=== PATIENT | male | born 1990 ===

== ENCOUNTER 2021-07-12 20:04 | Inpatient (IN) | payer SELFPAY ==
--- NOTE | 2021-07-12 21:12 | Emergency Department Report ---
ED General Adult HPI - General Chief complaint: Urogenital-Male Stated complaint: CYST/GROIN PAIN Time Seen by Provider: 07/12/21 20:54 Source: EMS Mode of arrival: Stretcher Limitations: Language Barrier - History of Present Illness Initial comments: Patient is 31 years old male with no significant past medical history. Patient presented to the ER complaining of left groin swelling. Patient stated that he was walking today and then all of a sudden he felt for swelling and he feels like he is getting bigger. 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 Patient is very anxious. Patient denied any fever, chills, nausea or vomiting. Patient rated his pain as 10 out of 10. - Related Data Allergies Allergy/AdvReac Type Severity Reaction Status Date / Time No Known Allergies Allergy Verified 07/12/21 21:00 ED Review of Systems ROS: Stated complaint: CYST/GROIN PAIN Other details as noted in HPI Comment: All other systems reviewed and negative Constitutional: denies: chills, fever Respiratory: denies: cough, shortness of breath, SOB with exertion, SOB at rest Cardiovascular: denies: chest pain, palpitations Gastrointestinal: denies: abdominal pain, nausea, vomiting, diarrhea, constipation, hematemesis, melena, hematochezia Genitourinary: other (Left inguinal hernia.). denies: testicular mass Neurological: denies: headache, weakness, numbness, paresthesias, confusion, abnormal gait ED Past Medical Hx - Past Medical History Previous Medical History?: No ED Physical Exam - General Limitations: Language Barrier General appearance: alert, in distress - Head Head exam: Present: atraumatic, normocephalic, normal inspection - Eye Eye exam: Present: normal appearance, PERRL - ENT ENT exam: Present: normal exam, normal orophraynx, mucous membranes moist - Neck Neck exam: Present: normal inspection, full ROM. Absent: tenderness, meningismus - Respiratory Respiratory exam: Present: normal lung sounds bilaterally - Cardiovascular Cardiovascular Exam: Present: regular rate, normal rhythm, normal heart sounds - GI/Abdominal GI/Abdominal exam: Present: soft, normal bowel sounds, hernia (Left inguinal hernia). Absent: distended, tenderness, guarding, rebound, rigid, organomegaly, mass, bruit, pulsatile mass (.) - Extremities Exam Extremities exam: Present: normal inspection, full ROM, normal capillary refill. Absent: tenderness, pedal edema, joint swelling, calf tenderness - Back Exam Back exam: Present: normal inspection, full ROM. Absent: CVA tenderness (R), CVA tenderness (L) - Neurological Exam Neurological exam: Present: alert, oriented X3, CN II-XII intact, normal gait, reflexes normal - Psychiatric Psychiatric exam: Present: normal mood - Skin Skin exam: Present: warm, intact, normal color ED Course Vital Signs 07/12/21 20:07 Temperature 97.8 F Pulse Rate 96 H Respiratory 19 Rate Blood Pressure 131/93 [Right] O2 Sat by Pulse 100 Oximetry - Reevaluation(s) Reevaluation #1: 07/12/21 21:15 Tried to reduce the left inguinal hernia however unsuccessful. Reevaluation #2: 07/12/21 22:10 Patient given morphine for pain. Attempted again to reduce the hernia with no success. CT abdomen pelvis ordered. 07/12/21 23:51 ED Medical Decision Making - Lab Data Result diagrams: 07/12/21 21:16 07/12/21 21:16 - Radiology Data Radiology results: report reviewed - Medical Decision Making Patient is 31 years old male with no significant past medical history. Patient presented to the ER complaining of left groin swelling. Patient stated that he was walking today and then all of a sudden he felt for swelling and he feels like he is getting bigger. 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 Patient is very anxious. Patient denied any fever, chills, nausea or vomiting. Patient rated his pain as 10 out of 10. Labs showed leukocytosis of 13 with left shift. Patient received Zosyn. CT abdomen and pelvis with IV contrast showed incarcerated left inguinal hernia. I discussed the patient with Dr. Mejia, surgeon on-call, she stated that she is calling the OR for emergency surgery. I discussed the patient with Dr. Diaz, he agreed to admit the patient to medical service for further management. Critical Care Time: Yes Critical care time in (mins) excluding proc time.: 30 Critical care attestation.: If time is entered above; I have spent that time in minutes in the direct care of this critically ill patient, excluding procedure time. ED Disposition Clinical Impression: Incarcerated left inguinal hernia, Acute abdominal pain Disposition: ADMITTED INPATIENT Is pt being admited?: Yes Condition: Stable
[2021-07-12 21:49] LABS: Basophils % (Auto) 0.3 % (0.0-1.8); Lymphocytes % (Auto) 7.3 % (13.4-35.0); Mean Corpuscular HGB Conc 33 % (32-34); Mean Corpuscular Volume 91 fl (84-94); Monocytes # (Auto) 0.6 K/mm3 (0.0-0.8); Monocytes % (Auto) 4.3 % (0.0-7.3); Platelet Count 281 K/mm3 (140-440); Red Blood Count 4.62 M/mm3 (3.65-5.03); Red Cell Distribution Width 14.1 % (13.2-15.2)
[2021-07-12] MEDS ORDERED: SODIUM CHLORIDE 0.9% 1000 ML 1,000 ML IV ONE (21:58)
[2021-07-12] MEDS ORDERED: MORPHINE 4 MG/1 ML INJ IV ONE (21:58)
[2021-07-12] MEDS ORDERED: ONDANSETRON 4 MG/2 ML INJ IV ONE (21:58)
[2021-07-12 21:59] LABS: Blood Urea Nitrogen 12 mg/dL (9-20); Calcium 9.6 mg/dL (8.4-10.2); Hemolysis Index 12
[2021-07-12 22:02] LABS: BUN/Creatinine Ratio 20
[2021-07-12] MEDS ORDERED: LORazepam 2 MG/ML VIAL IV ONE (22:17)
[2021-07-12] MEDS ORDERED: PIPERACILLIN/TAZOBACTAM 3.375 3.375 GM/50 ML BAG IV ONE (23:06)
--- NOTE | 2021-07-12 23:22 | Cat Scan Report ---
CT ABDOMEN AND PELVIS WITH IV CONTRAST INDICATION: abdominal pain/LEFT GROIN HERNIA. COMPARISON: None available. TECHNIQUE: Axial CT images were obtained through the abdomen and pelvis after 100 mL Omnipaque [address] scans at this location are performed using CT dose reduction for ALARA by means of automated e xposure control. FINDINGS -- ABDOMEN: Lung Bases: No acute abnormality. Liver: Normal. Gallbladder: Normal. Bile Ducts: Normal. Pancreas: Normal. Spleen: Normal. Adrenals: Normal. Right Kidney and Proximal Ureter: Normal. Left Kidney and Proximal Ureter: Normal. Stomach and Bowel: Normal. Lymph Nodes: No significant adenopathy. Aorta: No significant abnormality. IVC: Normal. Additional Findings: None. FINDINGS -- PELVIS: Urinary Bladder and Distal Ureters: Normal. Reproductive Organs: No acute abnormality. Appendix: Normal. Bowel: No acute abnormality. Free Fluid: None. Lymph Nodes: No significant adenopathy. Additional Findings: There is a large incarcerated left inguinal hernia that contains several loops o f incarcerated small bowel with prominent surrounding edema. The mouth of the hernia measures approxi mately 3 cm in diameter.. Skeletal System: No acute abnormality. IMPRESSION: 1. Severe incarcerated left inguinal hernia containing a incarcerated loop of distal small bowel, as above. Underlying ischemia of the incarcerated portion of small bowel within the left inguinal hernia is not excluded. This appears to be causing low-grade mechanical obstruction of the upstream small b owel. Signer Name: Ap Hancock MD Signed: 07/12/2021 11:17 PM Workstation Name: [id number]
--- NOTE | 2021-07-13 00:37 | History and Physical Report ---
History of Present Illness Date of examination: 07/13/21 Date of admission: 07/13/21 Chief complaint: Abdominal pain History of present illness: This is a 31 years old male with no significant past medical history. Patient presented to the ER complaining of left groin swelling. Patient stated that he was walking today and then all of a sudden he felt for swelling and he feels like he is getting bigger. 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 left inquinal hernia containing incarcerated loop. S/P Open repair of incarcerated left inguinal hernia with mesh. Past History Past Medical History: other (Inguinal hernia) Past Surgical History: No surgical history Social history: lives with family, smoking, full code. denies: alcohol abuse, prescription drug abuse, IV drug use Family history: no significant family history Medications and Allergies Allergies Allergy/AdvReac Type Severity Reaction Status Date / Time No Known Allergies Allergy Verified 07/12/21 21:00 Review of Systems Constitutional: weakness Ears, nose, mouth and throat: no epistaxis, no bleeding gums Cardiovascular: no chest pain, no dyspnea on exertion Respiratory: no wheezing, no pleurisy Gastrointestinal: no melena Rectal: no itching, no hemorrhoids Musculoskeletal: no morning stiffness Integumentary: no rash, no pruritis, no redness Neurological: no paralysis Psychiatric: anxiety Hematologic/Lymphatic: no easy bruising, no easy bleeding, no lymphadenopathy, no lymphedema Allergic/Immunologic: no urticaria Exam - Constitutional Vitals: Temp Pulse Resp BP Pulse Ox 97.8 F 96 H 19 131/93 100 07/12/21 20:07 07/12/21 20:07 07/12/21 20:07 07/12/21 20:07 07/12/21 20:07 General appearance: Present: mild distress, well-nourished - EENT Eyes: Present: PERRL ENT: hearing intact, clear oral mucosa - Neck Neck: Present: supple, normal ROM - Respiratory Respiratory effort: normal Respiratory: bilateral: CTA - Cardiovascular Heart Sounds: Present: S1 & S2. Absent: rub, click - Extremities Extremities: pulses symmetrical, No edema Peripheral Pulses: within normal limits - Abdominal General gastrointestinal: Present: soft, tender, normal bowel sounds Localized gastrointestinal: tender: LLQ, guarding: LLQ, rebound: LLQ Male genitourinary: Present: normal - Integumentary Integumentary: Present: clear, warm, dry - Musculoskeletal Musculoskeletal: gait normal, strength equal bilaterally - Psychiatric Psychiatric: appropriate mood/affect, intact judgment & insight, cooperative - Neurologic Neurologic: CNII-XII intact, moves all extremities - Allied Health Allied health notes reviewed: nursing Results - Labs CBC & Chem 7: 07/12/21 21:16 07/12/21 21:16 Labs: Abnormal lab results 07/12/21 07/12/21 Range/Units 21:16 21:16 WBC 13.4 H (4.5-11.0) K/mm3 Lymph % (Auto) 7.3 L (13.4-35.0) % Lymph # (Auto) 1.0 L (1.2-5.4) K/mm3 Seg Neutrophils % 88.1 H (40.0-70.0) % Seg Neutrophils # 11.8 H (1.8-7.7) K/mm3 Carbon Dioxide 20 L (22-30) mmol/L Creatinine 0.6 L (0.8-1.3) mg/dL Glucose 120 H (75-100) mg/dL Assessment and Plan - Patient Problems (1) Acute abdominal pain Current Visit: No Status: Acute Plan to address problem: Pain level is 10/10 on assessment General consulted pain management (2) Incarcerated left inguinal hernia Current Visit: No Status: Acute Plan to address problem: CT of the abdomen showed incarcerated hernia with small bowel Start empiric antibiotic with Zosyn s/p Open repair of incarcerated left inguinal hernia with mesh patient has congenital absence of left testicle (3) Leukocytosis (leucocytosis) Current Visit: No Status: Acute Plan to address problem: Monitor white blood cells continue IV hydration and IV antibiotic (4) DVT prophylaxis Current Visit: No Status: Acute Plan to address problem: SCD
--- NOTE | 2021-07-13 01:16 | Consultation ---
History of Present Illness Consult date: 07/13/21 Reason for consult: other (left groin pain) Chief complaint: left groin pain - History of present illness History of present illness: 31 yo M with hx of left inguinal hernia who presents to ER with c/o pain and swelling in left groin for the past day. Patient states pain is sharp, severe, and does not radiate. The pain and swelling has progressively gotten worse leading to ER visit. 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 +vomiting in ER. No f/c. No cp, sob. No bulge or pain in right groin. Despite premedication with pain medication, hernia was unable to be reduced. Past History Past Medical History: other (Inguinal hernia) Past Surgical History: No surgical history Social history: lives with family, smoking (1 Pack every 3 days, marijuana), full code. denies: alcohol abuse, prescription drug abuse, IV drug use Family history: no significant family history Medications and Allergies Allergies Allergy/AdvReac Type Severity Reaction Status Date / Time No Known Allergies Allergy Verified 07/12/21 21:00 Review of Systems All systems: negative (10 pt ROS performed and negative except for that listed in HPI) Exam Vital Signs Temp Pulse Resp BP Pulse Ox 97.8 F 96 H 19 131/93 100 07/12/21 20:07 07/12/21 20:07 07/12/21 20:07 07/12/21 20:07 07/12/21 20:07 Narrative exam: Gen; AAOx3. Mod distress due to pain ENT: no icterus or conjunctival pallor CV: S1, S2+ resp; even and unlabored Abd: soft, NT, ND. L inguinal hernia is soft but not reducible, +TTP, -skin changes. Ext; no c/c/e Results - Labs 07/12/21 21:16 07/12/21 21:16 Abnormal lab results 07/12/21 07/12/21 Range/Units 21:16 21:16 WBC 13.4 H (4.5-11.0) K/mm3 Lymph % (Auto) 7.3 L (13.4-35.0) % Lymph # (Auto) 1.0 L (1.2-5.4) K/mm3 Seg Neutrophils % 88.1 H (40.0-70.0) % Seg Neutrophils # 11.8 H (1.8-7.7) K/mm3 Carbon Dioxide 20 L (22-30) mmol/L Creatinine 0.6 L (0.8-1.3) mg/dL Glucose 120 H (75-100) mg/dL Diabetes panel 07/12/21 Range/Units 21:16 Sodium 138 (137-145) mmol/L Potassium 3.8 (3.6-5.0) mmol/L Chloride 103.0 (98-107) mmol/L Carbon Dioxide 20 L (22-30) mmol/L BUN 12 (9-20) mg/dL Creatinine 0.6 L (0.8-1.3) mg/dL Glucose 120 H (75-100) mg/dL Calcium 9.6 (8.4-10.2) mg/dL Calcium panel 07/12/21 Range/Units 21:16 Calcium 9.6 (8.4-10.2) mg/dL Pituitary panel 07/12/21 Range/Units 21:16 Sodium 138 (137-145) mmol/L Potassium 3.8 (3.6-5.0) mmol/L Chloride 103.0 (98-107) mmol/L Carbon Dioxide 20 L (22-30) mmol/L BUN 12 (9-20) mg/dL Creatinine 0.6 L (0.8-1.3) mg/dL Glucose 120 H (75-100) mg/dL Calcium 9.6 (8.4-10.2) mg/dL Adrenal panel 07/12/21 Range/Units 21:16 Sodium 138 (137-145) mmol/L Potassium 3.8 (3.6-5.0) mmol/L Chloride 103.0 (98-107) mmol/L Carbon Dioxide 20 L (22-30) mmol/L BUN 12 (9-20) mg/dL Creatinine 0.6 L (0.8-1.3) mg/dL Glucose 120 H (75-100) mg/dL Calcium 9.6 (8.4-10.2) mg/dL - Imaging CT scan - abdomen: report reviewed, image reviewed CT scan - pelvis: report reviewed, image reviewed Assessment and Plan 31 yo M with incarcerated left inguinal hernia containing obstructed small bowel Pt stable but hernia not reducible. Ct scan A/P demonstrates left inguinal hernia containing obstructed, incarcerated small bowel with possibility of underlying ischemia cannot be r/o. Plan: 1. Admit to hospitalist service 2. NPO 3. IVF 4. IV abx 5. prn pain control 6. recommend OR for reduction of small bowel and open repair of left inguinal hernia, possible mesh. Discussed with patient and the possibility of small bowel resection, exploratory laparotomy discussed. Consent obtained. Will proceed to OR emergently. Thank you. Please call with questions.
[2021-07-13] MEDS ORDERED: METOCLOPRAMIDE 10 MG/2 ML INJ IV PRN (01:19)
[2021-07-13] MEDS ORDERED: MAGNESIUM HYDROXIDE (MOM) ORAL LIQD UDC PO PRN (01:19)
[2021-07-13] MEDS ORDERED: ONDANSETRON 4 MG/2 ML INJ IV PRN (01:19)
[2021-07-13] MEDS ORDERED: ACETAMINOPHEN 325 MG TAB PO PRN (01:19)
[2021-07-13] MEDS ORDERED: NALOXONE 0.4 MG/1 ML INJ IV PRN (01:19)
[2021-07-13] MEDS ORDERED: MORPHINE 2 MG/1 ML INJ IV PRN (01:19)
[2021-07-13] MEDS ORDERED: oxyCODONE /ACETAMINOPHEN 5-325MG TAB PO PRN (01:19)
[2021-07-13] MEDS ORDERED: MORPHINE 4 MG/1 ML INJ IV PRN (01:19)
[2021-07-13] MEDS ORDERED: SODIUM CHLORIDE 0.9% 1000 ML 1,000 ML IV SCH (01:30)
[2021-07-13] MEDS ORDERED: BUPIVACAINE/PF (0.5%) 5 MG/1 ML 30 ML VIAL INFILTRATI ONE ×2 (01:45→03:00)
[2021-07-13] MEDS ORDERED: LIDOCAINE (1%) 10 MG/1 ML VIAL 20 ML MDV ONE (01:45)
--- NOTE | 2021-07-13 01:50 | Anesthesia Consultation ---
Anesthesia Consult and Med Hx Date of service: 07/13/21 - Airway Anesthetic Teeth Evaluation: Good ROM Head & Neck: Adequate Mental/Hyoid Distance: Adequate Mallampati Class: Class I Intubation Access Assessment: Good - Pulmonary Exam CTA: Yes - Pre-Operative Health Status ASA Pre-Surgery Classification: ASA2, Emergency Proposed Anesthetic Plan: General - Pulmonary Hx Smoking: Yes - Cardiovascular System Hx Hypertension: No Hx Coronary Artery Disease: No - Central Nervous System Hx Neuromuscular Disorder: No Hx Seizures: No - Endocrine Hx Renal Disease: No Hx Liver Disease: No Hx Insulin Dependent Diabetes: No Hx Non-Insulin Dependent Diabetes: No Hx Thyroid Disease: No - Hematic Hx Anemia: No - Other Systems Hx Alcohol Use: No Hx Substance Use: No Hx Obesity: No - Additional Comments Anesthesia Medical History Comments: Patient denied previous anesthesia complications.
--- NOTE | 2021-07-13 01:51 | Anesthesia Day of Surgery ---
Anesthesia Day of Surgery - Day of Surgery Patient Examined: Yes Patient H&P Reviewed: Yes Patient is NPO: Yes Beta Blockers: No Cardiac Clearance: No Pulmonary Clearance: No Irvin's Test: N/A
[2021-07-13] MEDS ORDERED: LIDOCAINE MPF (2%) 20 MG/1 ML VIAL 5 ML ONE (01:56)
[2021-07-13] MEDS ORDERED: ONDANSETRON 4 MG/2 ML INJ ONE (01:56)
[2021-07-13] MEDS ORDERED: HYDROmorphone 1 MG/1 ML INJ ONE (01:56)
[2021-07-13] MEDS ORDERED: ROCURONIUM 50 MG/5 ML INJ IV ONE (01:56)
[2021-07-13] MEDS ORDERED: propofoL 200 MG/20 ML VIAL IV ONE (01:57)
[2021-07-13] MEDS ORDERED: dexAMETHasone 20 MG/5 ML VIAL ONE (01:58)
[2021-07-13] MEDS ORDERED: PIPERACIL/TAZOBACTA 4.5/NS 100 4.5 GM/100 ML VIAL IV SCH (02:00)
[2021-07-13] MEDS ORDERED: SODIUM CHLORIDE 0.9% IRR 1,500 ML BOTTLE IR ONE (03:00)
[2021-07-13] MEDS ORDERED: LIDOCAINE (1%) 10 MG/1 ML VIAL 20 ML MDV INFILTRATI ONE (03:00)
[2021-07-13] MEDS ORDERED: KETOROLAC 30 MG/1 ML INJ ONE (03:58)
[2021-07-13] MEDS ORDERED: LACTATED RINGERS 2,000 ML ONE (03:59)
[2021-07-13] MEDS ORDERED: NEOSTIGMINE 10MG/10 ML INJ MDV ONE (03:59)
[2021-07-13] MEDS ORDERED: GLYCOPYRROLATE 0.4 MG/2 ML INJ ONE (03:59)
--- NOTE | 2021-07-13 04:19 | Operative Report ---
Operative Report Operative Report: Operative Report: Date of operation: 07/13/2021 Preoperative diagnosis: Incarcerated left inguinal hernia, small bowel obstruction Postoperative diagnosis: Incarcerated left inguinal hernia Procedure: Open repair of incarcerated left inguinal hernia with mesh Surgeon: Jonn huston DO Accounting Director: MD Abi Anesthesia: Geta, local, left ilioinguinal nerve block Findings: Moderate sized incarcerated left inguinal hernia. No cord structures on left - congenital absence of left testicle EBL: 5 cc Specimen: None Complications: None Disposition: Stable to PACU HPI an indication: Patient is a 31-year-old male with a history of left inguinal hernia, congenital absence of left testicle who presented to the emergency room with complaints of severe sudden onset left-sided groin pain with a bulge. He was found to have a incarcerated left inguinal hernia which could not be reduced. CT scan of the abdomen and pelvis revealed a left inguinal hernia containing a loop of obstructed small bowel. It was recommended that the patient undergo emergent repair of the left inguinal hernia. All risk, benefits, alternatives to surgery were discussed and questions answered. Consent obtained. Procedure in detail: The patient was identified in the preoperative area, taken back to the operating room and placed on the operating table in supine position. After anesthesia was induced, the abdomen was then prepped and draped in usual sterile fashion and a timeout was performed. Local anesthetic was infiltrated into the skin at the intended incision site. A curved incision was made from the pubic tubercle towards the ASIS using a 10 blade. Dissection was carried down through skin subcutaneous tissue using electrocautery. The hernia sac was identified and from the surrounding subcutaneous tissue. During manipulation of the hernia sac, contents were easily reduced. The external oblique fascia was cleared of overlying tissue and then opened in the direction of its fibers using Metzenbaum scissors. The nerve was identified and protected. The hernia sac was then dissected from the surrounding tissue using combination of blunt dissection and electrocautery. Cremasteric muscles were divided using electrocautery. The hernia sac was encircled with a Lars drain in order to facilitate retraction. There are no cord structures identified on this side as the patient does have a congenital absence of the left testicle. During the dissection, a branch of the nerve traced to the hernia sac and splayed out onto the hernia sac. This needed to be transected in order to facilitate dissection. Once the hernia sac was completely dissected it was reduced into the deep ring. The mouth of the hernia measured approximately 3 cm. The wound bed was checked for hemostasis was carefully ensured. The hernia was repaired with a medium size plug and patch. The plug was placed into the deep ring and sutured to the transversalis fascia medially and the shelving edge of the inguinal ligament laterally using 2-0 Prolene suture. The apex of the patch was sutured to the pubic tubercle using a 2-0 Prolene suture. The medial aspect was sutured to the transversalis fascia at every 1 cm interval using 2-0 Prolene interrupted sutures. The lateral aspect was sutured to the shelving edge of the inguinal ligament at every 1 cm interval using 2-0 Prolene interrupted sutures. There was a precut keyhole which was sutured together using 2-0 Prolene and tucked underneath the external oblique fascia. The mesh was seen to lay flat and had excellent coverage. At this point the external oblique fascia was reapproximated using a 3-0 Vicryl running stitch. Local anesthetic was once again infiltrated into the skin and subcutaneous tissue. A left ilioinguinal nerve block was performed using 5 cc of local anesthetic. The subcutaneous tissue was irrigated and hemostasis ensured. The deep dermal layer was then closed using interrupted 3-0 Vicryl sutures. The skin was approximated using 4-0 Monocryl subcuticular running stitch and skin glue. At the end of the case, all sponge, instrument, sharp counts were correct x2. The right testicle was palpated in the scrotum in anatomic position. The patient was awoken from anesthesia, extubated, taken to PACU in stable condition.
[2021-07-13] MEDS ORDERED: HYDROcodone/ACETAMINOPHEN 5-325 MG TAB PO PRN (04:20)
--- NOTE | 2021-07-13 04:42 | Post Anesthesia Evaluation ---
- Post Anesthesia Evaluation Patient Participated: Yes Airway Patent: Yes Stable Respiratory Function: Yes Nausea/Vomiting: No Temp > 96.8F: Yes Pain Manageable: Yes Adequeate Hydration: Yes Anesthesia Complications: No Block Receding Appropriately: Not Applicable Patient on Ventilator: No
[2021-07-13 08:47] VITALS: BP 108/64
[2021-07-13] MEDS ORDERED: FAMOTIDINE 20 MG/2 ML INJ IV SCH (10:00)
[2021-07-13] MEDS ORDERED: ENOXAPARIN 40 MG/0.4 ML INJ SUB-Q SCH (10:00)
--- NOTE | 2021-07-13 10:05 | Discharge Summary ---
Providers - Providers Date of Admission: 07/13/21 03:00 Date of discharge: 07/13/21 Attending physician: SAVITA YIN Primary care physician: JUNIOR MECH[employer]ICAL ENGINEER Hospitalization Reason for admission: Abdominal pain Condition: Stable Hospital course: 31 year old male with no significant past medical history who presented to the ER complaining of left groin swelling. Patient stated that he was walking on the day prior to admission and then all of a sudden he felt for swelling and he feels like he is getting bigger. 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 CT scan of the abdomen and pelvis revealed a left inguinal hernia containing a loop of obstructed small bowel. The patient was admitted with diagnosis of incarcerated left inguinal hernia and small bowel obstruction. The patient was seen by surgery and underwent open repair of incarcerated left inguinal hernia with mesh. The patient tolerated procedure well. Surgery felt patient could be discharged home if tolerating diet. Patient will be discharged with prescription for [place] and is to follow-up with surgeon as an outpatient. Dedicated discharge 35 minutes Disposition: 01 HOME / SELF CARE / HOMELESS Final Discharge Diagnosis (Prints w/discharge instructions): Incarcerated left inguinal hernia, small bowel obstruction, abdominal pain Core Measure Documentation - Palliative Care Palliative Care/ Comfort Measures: Not Applicable - Core Measures Any of the following diagnoses?: none Exam - Constitutional Vitals: Temp Pulse Resp BP Pulse Ox 98.6 F 66 18 108/64 98 07/13/21 05:56 07/13/21 05:56 07/13/21 05:56 07/13/21 05:56 07/13/21 05:56 General appearance: Present: no acute distress, well-nourished - EENT Eyes: Present: PERRL ENT: hearing intact, clear oral mucosa - Neck Neck: Present: supple, normal ROM - Respiratory Respiratory effort: normal Respiratory: bilateral: CTA - Cardiovascular Heart Sounds: Present: S1 & S2. Absent: rub, click - Extremities Extremities: pulses symmetrical, No edema Peripheral Pulses: within normal limits - Abdominal General gastrointestinal: Present: soft, non-tender, non-distended, normal bowel sounds Male genitourinary: Present: normal - Integumentary Integumentary: Present: clear, warm, dry - Musculoskeletal Musculoskeletal: gait normal, strength equal bilaterally - Psychiatric Psychiatric: appropriate mood/affect, intact judgment & insight - Neurologic Neurologic: CNII-XII intact, moves all extremities Plan Activity: advance as tolerated Weight Bearing Status: Weight Bear as Tolerated Diet: regular Follow up with: DENISSE BURNETTE DO [Staff Physician] - 14 Days PRIMARY CARE, [Primary Care Provider] - 7 Days Prescriptions: HYDROcodone/APAP 5-325 [[place] 5-325 mg TAB] 1 each PO Q4H PRN #12 tablet PRN Reason: Pain, Moderate (4-6)
== END 2021-07-13 12:30 | disposition home or self-care (01) | DRG 352 ==
LOC: ED 20:04 → OR 07-13 02:23 → 4A 07-13 03:00
PROVIDERS: ADMIT Internal Medicine Geriatric Medicine; ATTEND Hospitalist
PROC: 0YU60JZ Supplement Left Inguinal Region with Synthetic Substitute, Open Approach (ICD-10-PCS; principal; 2021-07-13)
DX: K40.30 Unilateral inguinal hernia, with obstruction, without gangrene, not specified as recurrent (principal); Z90.79 Acquired absence of other genital organ(s); D72.829 Elevated white blood cell count, unspecified
CPT/HCPCS: 36415; 74177; 80048; 85025; 86850; 86900; 86901; 87040; G0378; C1781; J1100; J1170; J1650; J1885; J2060; J2270; J2405; J2543; J2704; J2710; J7030; J7120; Q9967